=== PATIENT | male | born 1950 | race American Indian/Alaskan Native ===

== ENCOUNTER 2018-11-13 06:14 | Day surgery (SDC) | payer MEDICARE, OTHER ==
[2018-11-13] MEDS ORDERED: ECOTRIN PO ONE (06:38)
[2018-11-13] MEDS ORDERED: NACL 0.9% 500 ML 500 ML IV SCH (07:00)
[2018-11-13 07:10] LABS: Basophils % (Auto) 0.7 % (0.0-1.8); Eosinophils # (Auto) 0.3 K/mm3 (0.0-0.4); Eosinophils % (Auto) 3.9 % (0.0-4.3); Hematocrit 42.3 % (35.5-45.6); Hemoglobin 14.3 gm/dl (11.8-15.2); Lymphocytes # (Auto) 1.7 K/mm3 (1.2-5.4); Mean Corpuscular HGB Conc 34 % (32-34); Mean Corpuscular Volume 88 fl (84-94); Monocytes # (Auto) 0.6 K/mm3 (0.0-0.8); Monocytes % (Auto) 8.1 % (0.0-7.3); Platelet Count 236 K/mm3 (140-440); Red Blood Count 4.78 M/mm3 (3.65-5.03); Red Cell Distribution Width 16.1 % (13.2-15.2)
[2018-11-13 07:19] LABS: INR 0.84 (0.87-1.13)
[2018-11-13 07:29] LABS: BUN/Creatinine Ratio 15; Blood Urea Nitrogen 17 mg/dL (9-20); Calcium 9.8 mg/dL (8.4-10.2); Hemolysis Index 21
[2018-11-13] MEDS ORDERED: HEPARIN/NS 5000 UNIT/500ML(CATH LAB) 1,000 ML IR ONE (08:20)
[2018-11-13] MEDS ORDERED: VERSED ONE (08:21)
[2018-11-13] MEDS ORDERED: XYLOCAINE 2% INFILTRATI ONE (08:21)
[2018-11-13] MEDS ORDERED: NITROGLYCERIN SYRINGE 3 ML ONE (08:21)
[2018-11-13] MEDS ORDERED: CALAN ONE (08:21)
[2018-11-13] MEDS ORDERED: SUBLIMAZE ONE (08:22)
[2018-11-13] MEDS: HEPARIN 10,000 UNITS/10 ML ONE ×2 (08:41→09:09)
[2018-11-13] MEDS ORDERED: HEPARIN/ 0.45% NACL-25,000 UNIT/500 ML 25,000 UNIT/500 ML BAG ONE (09:20)
--- NOTE | 2018-11-13 10:00 | Cardiac Catherization Report ---
CARDIAC CATHETERIZATION REFERRING PHYSICIAN: Josias Fry MD INDICATION FOR PROCEDURE: The patient is a very pleasant 67-year-old -[place] gentleman with a history of a high coronary calcium score, hypertension, diabetes, abnormal nuclear stress test, past tobacco abuse. He was evaluated for preoperative evaluation, set up for left heart catheterization. Risks, benefits, potential alternatives explained at length prior to obtaining informed consent. PROCEDURE IN DETAIL: The patient was brought to catheterization lab in a postabsorptive state, prepped and draped in sterile fashion. Isidro's test in right hand was normal. A 2 mL of 2% lidocaine used to anesthetize the right wrist. A standard 6-Kazakh hydrophilic sheath used to cannulate the right radial artery via modified Seldinger technique. All exchanges performed to exchange a J-tip guidewire. A JL3.5 catheter used to engage the left main. No dampening or ventricularization. Cineangiography performed in all projections. JR4 catheter was used to cross the aortic valve under fluoroscopic guidance. Left ventriculography performed in 30 SHORT and 30 IRISH projections via hand injections, catheter flushed. Manual pullback performed with continuous pressure monitoring. Catheter was used to engage the right coronary. No dampening or ventricularization. Cineangiography performed in all projections. Next, catheter removed from the body. DATA: Aortic pressure is 140/80, LV pressure is 140, LVEDP of 20 mmHg. Left ventriculography reveals normal systolic performance with estimated ejection fraction of 55-60%. No evidence of aortic stenosis. CORONARY ANATOMY: This is a codominant system. Left main is a large vessel, no significant disease, trifurcates into the left anterior descending, ramus intermedius, and left circumflex. Left circumflex is a moderate sized vessel, courses AV groove, gives off left PDA and large OM trunk. No significant disease. Ramus intermedius, courses the medial aspect to the lateral wall. No significant disease. LAD is a moderate sized vessel, courses anterior intraventricular groove, wraps around the apex. There is a mild to moderately calcific tortuous complex 90-95% proximal and high mid LAD stenoses, which are serial. [place] 3 flow is present. Right coronary is a moderate sized vessel, courses AV groove. No significant disease. Given abnormal stress test findings, we decided to proceed with PCI. Additional heparin given. Abnormal ACT confirmed. An EBU 3.5 guide used to engage left main without difficulty. We used a [place] wire to cross the lesion without difficulty. We did pass the balloon, but we were unable to pass the balloon to the lesion due to significant tortuosity, attempted a second to place a mahin wire unsuccessful. Eventually, we did probe the proximal segment POBA, but were unable to pass to the primary lesion. The patient is clinically stable, we decided to stop here, [place] 3 flow, chest pain free. We will send him to [facility] for rotablation and complex PCI, standard radial care. Continue IV heparin. ACT is abnormal. I directly supervised the administration of moderate sedation from 8:40 a.m. to 9:15 a.m. with fentanyl and Versed. CONCLUSIONS: 1. Severe single vessel coronary artery disease with a complex calcific tortuous 90-95% proximal/mid LAD stenosis, unsuccessful stent placement, POBA remains [place] 3 flow, no complications. We will transfer to [facility] for complex PCI. No other significant disease in the coronary tree. 2. Preserved left ventricular function. Continue IV heparin, aspirin. Remove radial sheath. The patient is clinically stable. Results of procedure and plan of care explained in length to the patient and family. All questions and concerns were addressed. JOB# [id number] ALEC/NANDA
[2018-11-13 12:34] VITALS: BP 154/94
--- NOTE | 2018-11-13 14:36 | Short Stay Summary ---
Short Stay Documentation Date of service: 11/13/18 - History H&P: obtained from office - Allergies and Medications Current Medications: Allergies No Known Allergies Allergy (Verified 11/13/18 06:37) Home Medications Medication Instructions Recorded Confirmed Last Taken Type Atorvastatin [Lipitor] 80 mg PO QHS 11/13/18 11/13/18 11/11/18 History 80mg Ezetimibe [Zetia] 10 mg PO HS 11/13/18 11/13/18 11/11/18 History 10mg Ibuprofen [Motrin 800 MG tab] 800 mg PO PRN PRN 11/13/18 11/13/18 11/10/18 History 800mg Levothyroxine [Synthroid] 25 mcg PO QAM 11/13/18 11/13/18 11/12/18 History 25mcg Lisinopril [Zestril TAB] 40 mg PO QHS 11/13/18 11/13/18 11/12/18 History 40mg Testosterone Cypionate [Testone 200 mg IM QMONTH 11/13/18 11/13/18 10/24/18 History Cik] 200mg amLODIPine [Norvasc] 10 mg PO DAILY 11/13/18 11/13/18 11/12/18 History 10mg hydroCHLOROthiazide [HCTZ] 25 mg PO HS 11/13/18 11/13/18 11/11/18 History 25mg metFORMIN XR [Glucophage XR] 500 mg PO DAILY 11/13/18 11/13/18 11/11/18 History 500mg - Brief post op/procedure progress note Date of procedure: 11/13/18 Pre-op diagnosis: abnormal stress test Post-op diagnosis: other (CAD) Procedure: [facility] - see dictated cath report Anesthesia: local Estimated blood loss: none Condition: stable - Hospital course Hospital course: pt tx to [facility] for complex PCI - Disposition Condition at discharge: Stable Disposition: [id number] ANOTHER TYPE HLTHCARE - Discharge Diagnoses (1) CAD (coronary artery disease) Status: Acute (2) HTN (hypertension) Status: Acute (3) Diabetes Status: Acute Short Stay Discharge Plan Diet: low fat, low cholesterol, low salt Wound: open to air, keep clean and dry, per your surgeon's advice Follow up with: HEDY ZHANG MD [Primary Care Provider] - 7 Days
== END 2018-11-13 12:20 | disposition other institution (70) ==
LOC: CATHLABREC 06:14
PROVIDERS: ATTEND Internal Medicine
DX: I25.10 Atherosclerotic heart disease of native coronary artery without angina pectoris (principal); I10 Essential (primary) hypertension; E11.9 Type 2 diabetes mellitus without complications; E78.00 Pure hypercholesterolemia, unspecified; M19.90 Unspecified osteoarthritis, unspecified site; E89.0 Postprocedural hypothyroidism; Z79.82 Long term (current) use of aspirin; Z79.899 Other long term (current) drug therapy; Z87.891 Personal history of nicotine dependence; Z85.46 Personal history of malignant neoplasm of prostate; Z98.890 Other specified postprocedural states; Z83.49 Family history of other endocrine, nutritional and metabolic diseases; Z79.01 Long term (current) use of anticoagulants; Z82.49 Family history of ischemic heart disease and other diseases of the circulatory system
CPT/HCPCS: 36415; 80048; 82962; 85025; 85347; 85610; 85730; 92920; 93005; 93010; 93458; 96365; 96366; 99156; 99157; C1725; C1769; C1887; C1894; J1644; J2250; J3010; J7040; Q9967